=== PATIENT | female | born 1995 | race Caucasian/White ===

== ENCOUNTER 2017-01-14 05:35 | Inpatient (IN) | payer MEDICAID ==
[~2017-01-14] VITALS: Ht 165.1 cm; Wt 96.2 kg
[2017-01-16] MEDS ORDERED: PRENATAL VIT1 TAB PO (18:47)
[2017-01-16] MEDS ORDERED: SYNTHROID DPS0.05 MG PO (18:47)
[2017-01-16] MEDS ORDERED: MYLICON DPS80 MG PO (18:48)
[2017-01-16] MEDS ORDERED: HUMALOG100 UNIT/1 SQ (18:48)
[2017-01-16] MEDS ORDERED: MOTRIN-DPS800 MG PO (18:48)
[2017-01-16] MEDS ORDERED: COLACE-DPS100 MG PO (18:48)
[2017-01-16] MEDS ORDERED: PERCOCET 5 DPS1 TAB PO (18:49)
--- NOTE | 2017-01-26 07:23 | OR ---
ADMIT: 01/14/2017 RM/LOC: 218 [facility] MR#: [id number] [facility] [address] [place], [place] [address] HUDSON RIKY Alyssa [address] [place] [address] Operative/Delivery Room Report SEX: F AGE: 21 : 1995 SURGERY DATE: 01/14/2017 SURGEON: Julia Heath MD PROCEDURE: Repeat low transverse section. PER DIEM CLERK: Jyoti Slater MD Resident. PREOPERATIVE DIAGNOSES: 1. Intrauterine at 39-5/7th weeks. 2. Insulin-dependent diabetes mellitus. 3. Rh negative. 4. Hypothyroidism. 5. Previous section x1. POSTOPERATIVE DIAGNOSES: 1. Intrauterine at 39-5/7th weeks. 2. Insulin-dependent diabetes mellitus. 3. Rh negative. 4. Hypothyroidism. 5. Previous section x1. FINDINGS: 1. Liveborn male , scores 6 at 1 minute, 8 at 5 minutes. Weight 9 pounds 0 ounces. 2. Thick meconium. 3. Normal-appearing uterus, tubes, and ovaries bilaterally. ESTIMATED BLOOD LOSS: 600 mL. ANESTHESIA: Spinal. COMPLICATIONS: None. INDICATIONS FOR PROCEDURE: The patient is a 21-year-old, 2 para 1-0-0- 1, who presented to Labor and Delivery at 39-5/7th weeks' gestation for scheduled repeat section. The patient's had been complicated by previous section x1, type 1 diabetes controlled on insulin pump, hypothyroidism, Rh negative status, and group B Strep positive status. Risks, benefits, and alternatives of surgery have been discussed with the patient and she agreed to proceed with repeat low transverse section. DESCRIPTION OF PROCEDURE: The patient was taken to the operating room where spinal anesthesia was obtained without difficulty. The patient was placed in dorsal supine position in leftward tilt, and prepped and draped in the usual sterile fashion. A Pfannenstiel skin incision was made with a scalpel and was carried through to the underlying layer of fascia. There was noted to be scarring of the fascial layer. The fascial incision was extended bilaterally ADMIT: 01/14/2017 RM/LOC: 218 [facility] MR#: [id number] [facility] [address] [place], [place] [address] RIKY HUDSON [address] [place] [address] Operative/Delivery Room Report SEX: F AGE: 21 : 1995 with Will scissors. The superior aspect of the fascial incision was grasped with Lee clamps, elevated, and the underlying rectus muscles were dissected off bluntly with electrocautery. In a similar fashion, the inferior aspect of the fascial incision was grasped with Lee clamps, elevated, and the underlying rectus muscles were dissected off with Will scissors. The peritoneum was entered bluntly and this incision was extended bluntly. It was noted that the peritoneal incision was small, and so this was extended further using electrocautery. The bladder blade was then placed. The vesicouterine peritoneum was identified and entered sharply with the Metzenbaum scissors. This incision was extended bilaterally. A bladder flap was created digitally. The lower uterine segment was then incised with a scalpel. This incision was extended bluntly. Thick meconium fluid was noted with the amniotomy. The 's vertex was grasped. The vertex was noted to be in an asynclitic position. It was also noted that the peritoneal incision and muscles were quite tight. Due to the dystocia, due to these factors, the muscles were cut bilaterally with bandage scissors. With the next attempt, the 's vertex was able to be delivered and the remainder of the infant delivered as well. The was dried. The cord was clamped and cut, and the was handed off to the warmer where nursing personnel were in attendance. Twenty units of Pitocin were placed in IV bag to firm the uterus. The uterus was exteriorized and cleared of all clots and debris. The uterine incision was then closed in a running locked fashion using 0 Vicryl. Several additional [id number] stitches were used for hemostasis of the uterine incision. The uterus was then replaced into the abdominal cavity. The gutters were checked and cleared of all clots and debris. The uterine incision was again examined and was noted to be hemostatic. The muscles and fascia were examined. They were noted to be hemostatic. The fascial incision was closed in a running fashion using 0 Vicryl. The subcutaneous layer was made hemostatic with electrocautery. This layer was brought together using interrupted 2-0 plain gut, and the skin incision was closed with subcuticular stapler. Due to adhesive reaction, Dermabond was then placed over the incision as well. The patient tolerated the procedure well. All sponge and needle counts were correct. The patient and her infant recovered in the room in stable condition. EDIT: 01/15/2017 0616 njv Julia Heath MD/ jean-claude JOB #: [id number] CC: Julia Heath, Attending Physician Julia Heath, Family Physician
--- NOTE | 2017-01-26 07:23 | HP ---
ADMIT: 01/14/2017 RM/LOC: 218 [facility] MR#: [id number] [address] [address] RIKY HUDSON [address] [place] [id number] Pre-OP History and Physical SEX: F AGE: 21 : 1995 HISTORY OF PRESENT ILLNESS: The patient is a 21-year-old, 2, para 1-0- 0-1, who presented to Labor and Delivery at 39-6/7 weeks' gestation by last menstrual period with estimated date of confinement 01/16/2017. The patient's has been complicated by type 1 diabetes, which has been stable on insulin pump as well as Rh negative status, hypothyroidism, history of previous section x1, and positive group B strep status. As stated above, the patient's diabetes has been well controlled with insulin pump and thyroid has been normal throughout the as well. Due to history of previous section x1, the patient has been scheduled for repeat section. PAST MEDICAL HISTORY: 1. History of type 1 diabetes. 2. Hypothyroidism. PAST SURGICAL HISTORY: 1. section x1. 2. Knee surgery in 2014. 3. Sinus surgery and tonsillectomy in 2010. ALLERGIES: PENICILLIN. CURRENT MEDICATIONS: 1. Humalog by insulin pump. 2. vitamin daily. 3. Synthroid 50 mcg daily. FAMILY HISTORY: Maternal grandmother with melanoma and paternal grandmother with colon cancer. SOCIAL HISTORY: The patient is single. She denies any alcohol, tobacco, or drug use. PHYSICAL EXAMINATION: VITAL SIGNS: On admission, vital signs are stable. The patient is afebrile. GENERAL: The patient is alert and oriented, no acute distress. HEART: Regular rate and rhythm without murmurs, gallops, or rubs. LUNGS: Clear to auscultation bilaterally. ABDOMEN: Soft, nontender, gravid. EXTREMITIES: No edema. No calf tenderness. heart tones are in the 140s. ASSESSMENT AND PLAN: 1. A 21-year-old 2 para 1-0-0-1 at 39-5/7th weeks' gestation. 2. History of previous section x1. 3. Type 1 diabetes, controlled on insulin pump. 4. Hypothyroidism. 5. Rh negative status. ADMIT: 01/14/2017 RM/LOC: 218 [facility] MR#: [id number] [address] [address] RIKY HUDSON [address] [place] [address] Pre-OP History and Physical SEX: F AGE: 21 : 1995 6. Group B Strep positive. PLAN: 1. Plan to proceed with repeat low transverse section. The risks, benefits, and alternatives of surgery including, but not limited to risk of bleeding, possibly requiring blood transfusion, risk of infection, the risk of injury to bowel or bladder have been discussed with the patient. She wished to proceed. 2. Type 1 diabetes. Due to type 1 diabetes, we will begin insulin drip in preparation for section. We will restart her insulin pump after delivery. The patient states that she did not change her insulin levels throughout the . We will continue at previous rate. 3. Hypothyroidism. 4. Rh negative status. We will give RhoGAM if indicated . Julia Heath MD/ jean-claude JOB #: [id number] CC: Julia Heath, Attending Physician Julia Heath, Family Physician
--- NOTE | 2017-03-02 09:19 | DS ---
ADMIT: 01/14/2017 RM/LOC: 218 [facility] MR#: [id number] [id number] [facility] [address] [place], [place] [address] BECCA RIKY L [address] [place] [address] General Discharge Summary SEX: F AGE: 21 : 1995 ADMISSION DATE: 01/14/2017 DISCHARGE DATE: 01/16/2017 ADMISSION DIAGNOSES: 1. Intrauterine at 39-6/7th weeks' gestation. 2. Type 1 diabetes, stable on insulin. 3. Rh negative. 4. Hypothyroidism. 5. Previous section x1. 6. Positive group B Streptococcus. DISCHARGE DIAGNOSES: 1. Intrauterine at 39-6/7th weeks' gestation. 2. Type 1 diabetes, stable on insulin. 3. Rh negative. 4. Hypothyroidism. 5. Previous section x1. 6. Positive group B Streptococcus. PROCEDURE PERFORMED: Repeat low transverse section performed on 01/14/2017, with delivery of liveborn male ; scores 6 at 1 minute, 8 at 5 minutes; weight 9 pounds 0 ounces. HOSPITAL COURSE: On postoperative day #1, the patient's pain was controlled. Postoperative hemoglobin was noted be 10.9. The patient's pump was restarted per her pre- settings and values were noted to be somewhat low, so her settings were decreased. By postoperative day #2, the patient was stable for discharge. DISCHARGE INSTRUCTIONS: The patient is to be discharged to home. She is to continue Motrin and Percocet as needed for pain control. She is to continue insulin per protocol as well. She is to follow up in the clinic in 2 weeks for an incision check and in 6 weeks for a check. She is to follow up with their driver supervisor as well in 2 to 4 weeks. Julia Heath MD/ jean-claude JOB #: [id number] CC: Julia Heath MD, Attending Physician Julia Heath MD, Family Physician
== END 2017-01-16 16:00 | disposition home or self-care (01) | DRG 765 ==
LOC: BC 05:35 → 2LDRP 05:35
PROVIDERS: ADMIT Obstetrics & Gynecology
PROC: 10D00Z1 Extraction of Products of Conception, Low, Open Approach (ICD-10-PCS; principal; 2017-01-14)
DX: O34.211 Maternal care for low transverse scar from previous cesarean delivery (principal); O24.02 Pre-existing type 1 diabetes mellitus, in childbirth; O77.0 Labor and delivery complicated by meconium in amniotic fluid; O99.284 Endocrine, nutritional and metabolic diseases complicating childbirth; E03.9 Hypothyroidism, unspecified; Z96.41 Presence of insulin pump (external) (internal); Z3A.39 39 weeks gestation of pregnancy; Z37.0 Single live birth